=== PATIENT | female | born 1955 | race Caucasian/White ===

== ENCOUNTER 2025-02-08 09:42 | Day surgery (SDC) | payer MEDICARE, SELFPAY ==
[2025-02-03 10:55] VITALS: BMI 26.3
--- NOTE | 2025-02-05 15:28 | EXP.HP ---
History of Present Illness *Admission Date: 02/08/25 *History of present illness: Mrs. Mccollum is a 69-year-old female who is here for diagnostic EGD and screening colonoscopy. The patient recently went to the ED at [facility] in [place] on October 07, 2024 with noncardiac chest pain. Her primary care physician recommended that she see GI. She does get pills and foods hung up with dysphagia at times and make her cough and choke. She does take omeprazole daily for her heartburn. The patient does state that they did complete cardiac evaluation in the ED with troponins that were normal as well as chest CT to rule out PE and this testing was normal. Her PCP thought this may be costochondritis because she primarily gets this when she has coughing related to allergies. She also states that her pain was relieved by Toradol. However, she does state that the pain did radiate into her left arm. She does get a little bloating and occasional belching. She has never had an EGD. She did get placed on omeprazole when this first occurred. She reports no significant reflux. She reports no abdominal pain or weight loss. She did have a colonoscopy in July 2016 and had 14 polyps (tubular adenomas x 2-3/hyperplastic polyps x 11) removed. She did have a colonoscopy with me at [facility] in May 2019 and had 5 polyps (tubular adenomas x 4/hyperplastic polyp x 1) removed. Her last colonoscopy with me in May 2022 revealed 6 polyps (tubular adenomas x 5/small serrated adenoma x 1) which were removed. Her father had colon cancer in his 50s and her sister had colon cancer in her 40s. She also had a nephew with colon cancer in his late 30s. The examination is deemed medically necessary for EGD and colonoscopy. The patient has been seen, interviewed and examined prior to the procedure by both myself and the anesthesia provider. [facility] Disclaimer: The information contained in this section may have been updated after the patient was seen, as this information can be updated by other users. Medical History Hyperlipidemia History of colon polyps Cervical disc disorder History of squamous cell carcinoma Arthritis Surgical History [place] teeth removed History of tonsillectomy History of knee surgery History of hysteroscopy History of hernia repair History of elbow surgery History of cholecystectomy History of fusion of cervical spine History of bunionectomy H/O blepharoplasty H/O abdominoplasty Family History Mother Coronary artery disease Breast cancer Hypertension Father Colon cancer Hyperlipidemia Hypertension Stroke Sister Colon cancer Brother Prostate cancer Other Thyroid disorder Social History Smoking Status: Former smoker second hand exposure: No alcohol intake: current alcohol intake frequency: a few times a week substance use type: denies use current occupational status: retired Travel in the last 8 weeks?: None household members: spouse housing: house current occupation: [employer] current occupational exposures/hazards: No caffeine: No Have you lived/traveled outside US in past 30 days?: No Contact w/someone who lives/traveled outside US past 30 days?: No Exposure to someone with infectious disease in past 14 days?: No Do you have a fever (greater than 100.4 F or 38 C)?: No Have you tested positive for COVID-19?: No Exposed to someone with COVID-19 in past 14 days?: No Do you have a sore throat?: No Do you have a cough?: No Do you have any weakness?: No Are you experiencing any nausea/vomitting?: No Do you have any diarrhea?: No Are you experiencing any unusual bleeding?: No Do you have any muscle aches/pain?: No Do you have any abdominal pain?: No Are you experiencing loss of taste or smell?: No Other Medical History Have you received the Flu Vaccine for this season: Yes Have you received the Pneumonia Vaccine: Yes Review of Systems Review of Systems Review of systems (narrative): Negative *Cardiovascular Comments: Negative *Gastrointestinal Comments: Negative *Genitourinary Comments: Negative *Musculoskeletal Comments: Negative *Neurologic Comments: Negative Meds Home Medications and Allergies Home Medications ?Medication ?Instructions ?Recorded ?Confirmed ?Type naproxen 500 mg tablet 500 mg PO BID PRN . 11/18/24 02/03/25 History omeprazole 20 mg capsule,delayed 20 mg PO DAILY 11/18/24 02/03/25 History release rosuvastatin 20 mg tablet (Crestor) 20 mg PO DAILY 11/18/24 02/03/25 History New Prescriptions to Start Prescriptions: Allergies Allergy/AdvReac Type Severity Reaction Status Date / Time No Known Allergies Allergy Verified 02/08/25 10:32 Exam Data for Last 24 hours I & O for Last 24 hours: Intake & Output 02/02/25 02/03/25 02/04/25 02/05/25 23:59 23:59 23:59 23:59 Weight 163 lb *Routine HEENT Exam Head: Present normocephalic Eye: Present EOMI and PERRL ENT: Present mucous membranes moist *Routine Neck Exam Neck: Present supple *Routine Respiratory Exam Respiratory: Present CTA bilaterally *Routine Cardiovascular Exam Cardiovascular: Present RRR *Routine Abdominal Exam Abdominal: Present soft and normoactive bowel sounds; Absent tenderness *Routine Rectal Exam Rectal:: deferred *Routine Genitalia Exam Genitalia:: deferred *Routine Extremities Exam Extremities: Absent cyanosis, clubbing or edema *Routine Skin Exam Skin: Present warm; Absent rash *Routine Neurological Exam Neurological: Present alert and oriented X3 Assessment and Plan *Assessment and plan (1) Non-cardiac chest pain: Status: Acute Category: Medical Code(s): R07.89 - Other chest pain (2) Personal history of adenomatous and serrated colon polyps: Status: Acute Category: Medical Code(s): Z86.0101 - Personal history of adenomatous and serrated colon polyps (3) Family history of colon cancer: Status: Acute Category: Medical Code(s): Z80.0 - Family history of malignant neoplasm of digestive organs (4) Dysphagia: Status: Acute Category: Medical Code(s): R13.10 - Dysphagia, unspecified Plan A/P: 1. Noncardiac chest pain and dysphagia for upper endoscopy and personal history of adenomatous colon polyps and family history colonoscopy is the preprocedural diagnosis. The patient will be anesthetized/sedated using MAC sedation. The patient has been seen and examined. Cardiac and lung assessment prior to the examination is stable. Proceed with planned diagnostic EGD and screening/surveillance colonoscopy.
--- NOTE | 2025-02-08 07:03 | HMH.PROCNOTE ---
[facility] Procedure Note Date: 02/08/25 Procedure Note:: Upper Endoscopy Procedure Report: Esophagogastroduodenoscopy with cold biopsies and TTS balloon dilation Endoscopost: Lionel Solares II, MD Referring Physician: Anoop Fuentes MD, [address] [place] [id number] Date of Procedure: February 08, 2025 Equipment: Olympus [id number] standard upper endoscope Sedation: MAC sedation Indications: Mrs. Mccollum is a 69-year-old female who is here for diagnostic EGD and screening colonoscopy. The patient recently went to the ED at [facility] in [place] on October 07, 2024 with noncardiac chest pain. Her primary care physician recommended that she see GI. She does get pills hung up with dysphagia at times and make her cough and choke. This can also occur with liquids intermittently. She does take omeprazole daily for her heartburn. The patient does state that they did complete cardiac evaluation in the ED with troponins that were normal as well as chest CT to rule out PE and this testing was normal. Her PCP thought this may be costochondritis because she primarily gets this when she has coughing related to allergies. She also states that her pain was relieved by Toradol. However, she does state that the pain did radiate into her left arm. She does get a little bloating and occasional belching. She has never had an EGD. She did get placed on omeprazole when this first occurred. She reports no significant reflux. She reports no abdominal pain or weight loss. She did have a colonoscopy in July 2016 and had 14 polyps (tubular adenomas x 2-3/hyperplastic polyps x 11) removed. She did have a colonoscopy with ca at [facility] in May 2019 and had 5 polyps (tubular adenomas x 4/hyperplastic polyp x 1) removed. Her last colonoscopy with ca in May 2022 revealed 6 polyps (tubular adenomas x 5/small serrated adenoma x 1) which were removed. Her father had colon cancer in his 50s and her sister had colon cancer in her 40s. She also had a nephew with colon cancer in his late 30s. The examination is deemed medically necessary for EGD and colonoscopy. Procedure: Prior to the procedure, a history and physical exam was performed, and patient's medications and allergies were reviewed. The risks, benefits and alternatives of the sedation and procedure were discussed with the patient. All questions were answered and informed consent was obtained. The patient was brought to the procedure room. Patient identification and proposed procedure were verified by the physician and the nurse. The patient was placed in a left lateral decubitus position and the scope was passed under direct vision. Throughout the procedure, the patient's blood pressure, pulse, and oxygen saturations were monitored continuously. The upper GI endoscopy was accomplished without difficulty. The patient tolerated the procedure well. Findings: The scope was passed directly into the upper esophagus and advanced to the third portion of the duodenum. The post bulbar duodenum, ampulla and duodenal bulb were normal with normal mucosa and conniventes. 2 cold biopsies were taken from the second portion of the duodenum for the disaccharidase assay. The scope was withdrawn through a normal duodenal bulb and pylorus into the stomach. There was mild linear antral gastropathy. There was some mild proximal stomach chronic gastritis. 2 cold biopsies were taken from the antrum/incisura to rule out H. pylori. Upon retroflexion there was a very small sliding 1 to 2 cm hiatal hernia. The scope was then withdrawn into the esophagus. There was a single tongue of salmon-colored mucosa at that was biopsied to rule out intestinal metaplasia. There was no evidence of reflux esophagitis. There were tertiary contractions and evidence of mild esophageal dysmotility. The entire esophagus was dilated to 60 [place]/20 mm with a TTS hydrostatic balloon. There was mild resistance at the cricopharyngeus. The remainder of the esophageal mucosa was normal. Impression: 1. Nonerosive GERD with mild esophageal dysmotility, cricopharyngeal spasm and very small sliding 1 to 2 cm hiatal hernia 2. Mild linear antral gastropathy and mild chronic gastritis Plan: I will follow-up the biopsies and disaccharidase assay. I do feel that she has gas driven reflux/bile reflux causing some esophageal dyskinesia/esophageal spasm. I will discuss the findings with the patient and family. I will proceed with screening colonoscopy.
--- NOTE | 2025-02-08 07:03 | HMH.PROCNOTE ---
[facility] Procedure Note Date: 02/08/25 Time: 11:39 Procedure Note:: Colonoscopy Procedure Report: Colonoscopy with cold snare polypectomy Endoscopist: Lionle Solares II, MD Referring physician: Anoop Fuentes MD, [address] [facility] [place] [address] Date of Procedure: February 08, 2025 Equipment: Olympus [id number] adult colonoscope Sedation: MAC sedation Indication: Mrs. Mccollum is a 69-year-old female who is here for diagnostic EGD and screening colonoscopy. The patient recently went to the ED at [facility] in [place] on October 07, 2024 with noncardiac chest pain. Her primary care physician recommended that she see GI. She does get pills and foods hung up with dysphagia at times and make her cough and choke. She does take omeprazole daily for her heartburn. The patient does state that they did complete cardiac evaluation in the ED with troponins that were normal as well as chest CT to rule out PE and this testing was normal. Her PCP thought this may be costochondritis because she primarily gets this when she has coughing related to allergies. She also states that her pain was relieved by Toradol. However, she does state that the pain did radiate into her left arm. She does get a little bloating and occasional belching. She has never had an EGD. She did get placed on omeprazole when this first occurred. She reports no significant reflux. She reports no abdominal pain or weight loss. She did have a colonoscopy in July 2016 and had 14 polyps (tubular adenomas x 2-3/hyperplastic polyps x 11) removed. She did have a colonoscopy with vt at [facility] in May 2019 and had 5 polyps (tubular adenomas x 4/hyperplastic polyp x 1) removed. Her last colonoscopy with vt in May 2022 revealed 6 polyps (tubular adenomas x 5/small serrated adenoma x 1) which were removed. Her father had colon cancer in his 50s and her sister had colon cancer in her 40s. She also had a nephew with colon cancer in his late 30s. The examination is deemed medically necessary for EGD and colonoscopy. Procedure: Prior to the procedure, a history and physical exam was performed, and patient's medications and allergies were reviewed. The risks, benefits and alternatives of the sedation and procedure were discussed with the patient. All questions were answered and informed consent was obtained. The patient was brought to the procedure room. Patient identification and proposed procedure were verified by the physician and the nurse. The patient was placed in a left lateral decubitus position and the scope was passed under direct vision. Throughout the procedure, the patient's blood pressure, pulse, and oxygen saturations were monitored continuously. The colonoscopy was accomplished without difficulty. The patient tolerated the procedure well. Findings: On digital rectal examination there was normal rectal tone. There were no external hemorrhoids. The colonoscope was introduced through the anal canal to the rectum and advanced to the cecum. The ileocecal valve and appendiceal orifice were identified. The scope was advanced a short distance into the ileum which appeared grossly normal. The scope was then withdrawn into the colon. There were 4 diminutive colon polyps (descending x 1 (3 mm), sigmoid x 1 (3 mm) and rectum x 2 (2 and 3 mm)). These were all removed via cold snare polypectomy. The remaining cecum, ascending, transverse, descending, sigmoid and rectum were grossly normal. There were no other mucosal abnormalities identified. Upon retroflexion within the rectum there were grade 1-2 internal hemorrhoids. The preparation was excellent throughout with [place] Preparation Score of 9. The cecal time was 14 minutes. Impression: 1. Diminutive colonic polyps x 4 Plan: I will follow-up the polyp histology and recommend repeat screening/surveillance colonoscopy again in 5 years.
[2025-02-08 10:37] VITALS: BP 119/79; PULSE 88; RESP 18; TEMP 36.2; O2SAT 97
[2025-02-08] MEDS: LACTATED RINGERS 1000ML 1,000 ML 50 ML IV (10:45)
--- NOTE | 2025-02-08 10:48 | EXP.ANES.CKL ---
[facility] Disclaimer: The information contained in this section may have been updated after the patient was seen, as this information can be updated by other users. Medical History Hyperlipidemia History of colon polyps Cervical disc disorder History of squamous cell carcinoma Arthritis Surgical History [place] teeth removed History of tonsillectomy History of knee surgery History of hysteroscopy History of hernia repair History of elbow surgery History of cholecystectomy History of fusion of cervical spine History of bunionectomy H/O blepharoplasty H/O abdominoplasty Family History Mother Coronary artery disease Breast cancer Hypertension Father Colon cancer Hyperlipidemia Hypertension Stroke Sister Colon cancer Brother Prostate cancer Other Thyroid disorder Social History Smoking Status: Former smoker second hand exposure: No alcohol intake: current alcohol intake frequency: a few times a week substance use type: denies use current occupational status: retired Travel in the last 8 weeks?: None household members: spouse housing: house current occupation: [employer] current occupational exposures/hazards: No caffeine: No Have you lived/traveled outside US in past 30 days?: No Contact w/someone who lives/traveled outside US past 30 days?: No Exposure to someone with infectious disease in past 14 days?: No Do you have a fever (greater than 100.4 F or 38 C)?: No Have you tested positive for COVID-19?: No Exposed to someone with COVID-19 in past 14 days?: No Do you have a sore throat?: No Do you have a cough?: No Do you have any weakness?: No Are you experiencing any nausea/vomitting?: No Do you have any diarrhea?: No Are you experiencing any unusual bleeding?: No Do you have any muscle aches/pain?: No Do you have any abdominal pain?: No Are you experiencing loss of taste or smell?: No [facility] Anesthesia Checklist Patient Identification Patient Identification: Arm Band and Verbal (Name & ) Structural Data Admitted From: Home Planned Operative Procedure/s: EGD + Colonoscopy Consent for Planned Operative Procedure(s) Verified: Yes Verified Documents: Surgical Consent NPO Status Verified Time NPO: 00:00 Additional verifications Anesthesia Reactions: No Airway Assessment Mallampati Score:: Class II C-Spine Mobility Assessed: Yes TMJ Mobility Assessed: Yes Dentition: Good Dentition Neurological Assessment Level of Consciousness: Awake, Alert and Appropriate Hx Seizures: No Numbness or tingling in extremities: No Anesthesia Plan Anesthesia Risk discussed: Yes Anesthesia Plan: Verified ASA Class: II Anesthesia Type: MAC
[2025-02-08 11:51] VITALS: BP 112/63; PULSE 63; O2SAT 96
[2025-02-08 12:01] VITALS: BP 130/68; PULSE 84; O2SAT 97
[2025-02-08 12:08] VITALS: BP 106/56; PULSE 75; RESP 18; TEMP 36.2; O2SAT 96
[2025-02-08 12:11] VITALS: BP 123/77; PULSE 78; O2SAT 95
== END 2025-02-08 12:11 | disposition home or self-care (01) ==
PROVIDERS: PCP Family Medicine; Visit Provider Internal Medicine Gastroenterology
PROC: 0DJ08ZZ Inspection of Upper Intestinal Tract, Via Natural or Artificial Opening Endoscopic (ICD-10-PCS; CPT 45378; principal; 2025-02-08 11:30)
DX: Z12.11 Encounter for screening for malignant neoplasm of colon (principal); D12.4 Benign neoplasm of descending colon; K63.5 Polyp of colon; K21.00 Gastro-esophageal reflux disease with esophagitis, without bleeding; K64.0 First degree hemorrhoids; K64.1 Second degree hemorrhoids; K31.89 Other diseases of stomach and duodenum; K29.50 Unspecified chronic gastritis without bleeding; K44.9 Diaphragmatic hernia without obstruction or gangrene; K22.4 Dyskinesia of esophagus; E78.5 Hyperlipidemia, unspecified; M19.90 Unspecified osteoarthritis, unspecified site; Z86.0102 Personal history of hyperplastic colon polyps; Z86.0101 Personal history of adenomatous and serrated colon polyps; Z80.0 Family history of malignant neoplasm of digestive organs; Z87.891 Personal history of nicotine dependence; Z90.49 Acquired absence of other specified parts of digestive tract; Z90.710 Acquired absence of both cervix and uterus
CPT/HCPCS: 43239; 43249; 45385; 82657; C1726; J2003; J2704; J7120